=== PATIENT | male | born 1980 | race Caucasian/White ===

== ENCOUNTER 2016-07-10 16:30 | Emergency (ER) | payer OTHER ==
[2016-07-10] MEDS ORDERED: CYCLOBENZAPRINE 10 MG TABLET PO STA (17:23)
[2016-07-10] MEDS ORDERED: CYCLOBENZAPRINE 10 MG TABLET PO ONE (17:49)
[2016-07-10] MEDS ORDERED: LIDOCAINE PATCH 5% TOP STA (18:29)
[2016-07-10] MEDS ORDERED: LIDOCAINE PATCH 5% TOP ONE (18:31)
== END 2016-07-10 18:36 | disposition home or self-care (01) ==
DX: S13.9XXA Sprain of joints and ligaments of unspecified parts of neck, initial encounter (principal); W51.XXXA Accidental striking against or bumped into by another person, initial encounter; Y93.68 Activity, volleyball (beach) (court); F17.200 Nicotine dependence, unspecified, uncomplicated
CPT/HCPCS: 72040; 99283; A9270

== ENCOUNTER 2017-02-14 22:10 | Emergency (ER) | payer OTHER ==
[2017-02-14] MEDS ORDERED: FAMOTIDINE 20 MG/2 ML VIAL IVP STA (22:14)
[2017-02-14] MEDS ORDERED: methylPREDNISolone SUCCINATE 125 MG/2 ML VIAL IVP STA (22:14)
[2017-02-14] MEDS ORDERED: diphenhydrAMINE INJ 50 MG/ML VIAL IVP STA (22:14)
[2017-02-14] MEDS ORDERED: diphenhydrAMINE INJ 50 MG/ML VIAL ONE (22:24)
[2017-02-14] MEDS ORDERED: methylPREDNISolone SUCCINATE 125 MG/2 ML VIAL ONE (22:25)
[2017-02-14] MEDS ORDERED: FAMOTIDINE 20 MG/2 ML VIAL ONE (22:25)
--- NOTE | 2017-02-14 23:00 | ED Physician Documentation ---
PD HPI SKIN - Stated complaint Stated Complaint: ALLERGIC REACTION - Chief complaint Chief Complaint: Allergic Rx - History obtained from History obtained from: Patient, EMS - History of Present Illness Timing - onset: Today Timing - details: Abrupt onset Location: Face, Chest, Back, Bodywide Quality / character: Itchy Improved by: Benadryl Contributing factors: Exposed to food Similar symptoms before: Has not had sx before Recently seen: Not recently seen - Additional information Additional information: Patient is a 37 year old male who is presenting to the emergency department for an allergic reaction. Patient states that about 4 hours ago he at some crab cakes but did not have an issue. When he went back to his room he had some skittles and coconut water. Patient states that not too long after that he developed itching and a rash. patient did not have his benadryl with him. Patient started to drive to the emergency department but he was feeling dizzy so he decided to call the [facility] who brought the patient in for evaluation. Review of Systems Constitutional: denies: Fever, Chills Eyes: denies: Irritation Ears: reports: Reviewed and negative Nose: denies: Congestion Throat: denies: Sore throat Cardiac: denies: Chest pain / pressure Respiratory: denies: Dyspnea, Cough, Wheezing GI: denies: Nausea, Vomiting : reports: Reviewed and negative Skin: reports: Rash Musculoskeletal: reports: Reviewed and negative Neurologic: reports: Reviewed and negative PD PAST MEDICAL HISTORY - Past Medical History Past Medical History: No - Past Surgical History Past Surgical History: Yes - Present Medications Home Medications: Ambulatory Orders Medication Instructions Recorded Confirmed No Known Home Medications [No 02/14/17 02/14/17 Known Home Medications] - Allergies Allergies/Adverse Reactions: Allergies Allergy/AdvReac Type Severity Reaction Status Date / Time No Known Drug Allergies Allergy Verified 02/14/17 22:16 - Social History Does the pt smoke?: Yes Smoking Status: Current every day smoker Does the pt drink ETOH?: No Does the pt have substance abuse?: No - Immunizations Immunizations are current?: Yes PD ED PE NORMAL - Vitals Vital signs reviewed: Yes - General General: Alert and oriented X 3, No acute distress - HEENT HEENT: Atraumatic, PERRL, Moist mucous membranes, Pharynx benign - Neck Neck: Supple, no meningeal sign - Cardiac Cardiac: RRR, No murmur - Respiratory Respiratory: No respiratory distress, Clear bilaterally - Abdomen Abdomen: Soft, Non tender, Non distended - Extremities Extremities: No deformity, No edema - Neuro Neuro: Alert and oriented X 3, No motor deficit, No sensory deficit, Normal speech Eye Opening: Spontaneous Motor: Obeys Commands Verbal: Oriented GCS Score: 15 PD ED PE EXPANDED - HEENT HEENT: Other (no soft palate swelling, no tongue swelling) - Respiratory Respiratory: No: Retractions, Wheezing - Derm Derm: Rash, Urticaria (diffuse on face, chest, back and arms) Results - Vitals Vitals: Vital Signs - 24 hr 02/14/17 02/14/17 02/14/17 22:12 22:53 23:38 Temperature 36.9 C Heart Rate 88 85 87 Respiratory 18 18 12 Rate Blood Pressure 140/111 H 152/89 H 138/93 H O2 Saturation 97 94 96 Oxygen O2 Source Room air PD MEDICAL DECISION MAKING - ED course Complexity details: reviewed old records, reviewed results, re-evaluated patient , considered differential, d/w patient ED course: Patient was seen and examined at bedside. patient did have diffuse reaction but no airway involvement. Patient was treated with benadryl, pepcid and solumedrol. patient was observed in the emergency department for about an hour. Patient never developed airway involvement. Patient required no further work up and was stable for discharge with outpatient follow up. Departure - Departure Disposition: 01 Home, Self Care Clinical Impression: Allergic urticaria Condition: Good Instructions: ED Allergic Reaction General Other Follow-Up: primary, care provider [Other] - As Needed Comments: Your symptoms today are secondary to an allergic reaction. it is difficult to say what exactly caused it. You can continue with benadryl 25-50mg and pepcid if your symptoms return. You should follow up with your pmd for further allergy testing. You can return to the emergency department at any time for new , worsening or uncontrollable symptoms. Discharge Date/Time: 02/14/17 23:43
[2017-02-14 23:39] VITALS: BP 138/93
== END 2017-02-14 23:43 | disposition home or self-care (01) ==
LOC: EDUNIT# → ED 22:10
DX: L50.0 Allergic urticaria (principal); F17.200 Nicotine dependence, unspecified, uncomplicated; T78.40XA Allergy, unspecified, initial encounter
CPT/HCPCS: 96374; 96375; 99283; 99284